=== PATIENT | male | born 1995 | race Caucasian/White ===

== ENCOUNTER 2017-08-06 21:03 | Emergency (ER) ==
[2017-08-06 21:07] VITALS: BP 140/66; TEMP 99.4; BMI 43.8
[2017-08-06] MEDS ORDERED: PREDNISONE PO STA (21:23)
[2017-08-06] MEDS ORDERED: NORCO 5-325 PO STA (21:23)
--- NOTE | 2017-08-06 21:26 | ED.PDOC ---
General ED Provider: Dr. JULIETTE JOHNSON Chief Complaint: Back Pain Stated Complaint: Pateint states that while at work lifting 20 lbs tyres twisted wrong and felt severe pain on the lower back. Denies any radiation. Took 800mg of Ibuprufen but has not helped after 6 hours. Time Seen by Physician: 21:24 Mode of Arrival: Walk-In Information Source: Patient, Family Exam Limitations: No limitations Primary Care Provider: JOSE ALFREDO ALLEN Nursing and Triage Documentation Reviewed and Agree: Yes Musculoskeletal Complaint Exam - Back Pain Complaint/Exam Mechanism of Injury: Reports: Trauma (twisting ) Onset/Duration: 9 hours Symptoms Are: Still present Timing: Constant Episodes Lasting: Hours Initial Severity: Moderate Current Severity: Severe Location: Reports: Discrete (mid lumbar area ) Review of Systems - Review Of Systems Constitutional: Reports: No symptoms Musculoskeletal: Reports: Joint pain, Muscle pain Neurological: Reports: Anxiety All Other Systems: Reviewed and Negative Past Medical History - Past Medical History Endocrine: Reports: None Cardiovascular: Reports: None Respiratory: Reports: None Hematological: Reports: None Gastrointestinal: Reports: None Genitourinary: Reports: None Neuro/Psych: Reports: None Musculoskeletal: Reports: Other (Hernitated disk) Cancer: Reports: None - Surgical History General Surgical History: Reports: Unknown - Family History Family History: Reports: Unknown - Social History Smoking Status: Never smoker Hx Substance Use: No Alcohol Screening: None Physical Exam - Physical Exam Appearance: Ill-appearing, Obese Pain Distress: Severe Eyes: JUSTYNA, EOMI, Conjunctiva clear Neck: Supple Respiratory: Airway patent, Breath sounds clear, Breath sounds equal, Respirations nonlabored Cardiovascular: Tachycardia Musculoskeletal: Normal strength, ROM intact Skin: Warm, Dry, Normal color Neurological: Sensation intact, Motor intact, Reflexes intact, Cranial nerves intact, Alert, Oriented Psychiatric: Affect appropriate, Mood appropriate Critical Care Note - Critical Care Note Total Time (mins): 0 Course - Course Orders, Labs, Meds: Orders Category Date Time Status Hydrocodone Bit/Acetaminophen [[place] 5-325] MEDS 08/06/17 21:23 Stat 1 tab PO ONCE STA Prednisone MEDS 08/06/17 21:23 Stat 40 mg PO ONCE STA Medications Discontinued Medications Generic Name Dose Route Start Last Admin Trade Name Freq PRN Reason Stop Dose Admin Acetaminophen/Hydrocodone Bitart 1 tab 08/06/17 21:23 [place] 5-325 PO 08/06/17 21:24 ONCE STA Prednisone 40 mg 08/06/17 21:23 Prednisone PO 08/06/17 21:24 ONCE STA Vital Signs: Temp Pulse Resp BP Pulse Ox 08/06/17 21:04 99.4 F 100 H 20 140/66 97 Departure - Departure Time of Disposition: 21:26 Disposition: HOME SELF-CARE Discharge Problem: Backache Instructions: Lower Back Exercises (ED), Low Back Strain (ED) Condition: Fair Pt referred to PMD for follow-up: Yes Additional Instructions: Rest Follow up with PCP for Physical therapy referral or MRI if symptoms area not better. Prescriptions: Hydrocodone/Acetaminophen [[place] 5-325 Tablet] 1 tab PO Q6HR PRN #12 tablet PRN Reason: PAIN Ibuprofen [Motrin] 600 mg PO Q6H PRN #30 tablet PRN Reason: Analgesia Methylprednisolone [Medrol Dosepak] 4 mg PO DIRECTED #1 pkg Allergies/Adverse Reactions: Allergies No Known Allergies Allergy (Verified 08/06/17 21:07) Home Medications: Ambulatory Orders Butalbital/Aspirin/Caffeine [Fiorinal 50-325-40 mg Capsule] 1 tab PO TID PRN 04/01 Hydrocodone/Acetaminophen [[place] 5-325 Tablet] 1 tab PO Q6HR PRN #12 tablet Ibuprofen [Motrin] 600 mg PO Q6H PRN #30 tablet 08/06/17 Methylprednisolone [Medrol Dosepak] 4 mg PO DIRECTED #1 pkg 08/06/17 Disposition Discussed With: Patient, Family
== END 2017-08-06 21:45 | disposition home or self-care (01) ==
LOC: ED 21:03
DX: M54.5 Low back pain (principal); X50.1XXA Overexertion from prolonged static or awkward postures, initial encounter; Y99.0 Civilian activity done for income or pay
CPT/HCPCS: 99282